=== PATIENT | female | born 1945 | race Caucasian/White ===

== ENCOUNTER 2020-03-29 14:13 | Outpatient (CLI) | payer MEDICARE, OTHER, SELFPAY ==
--- NOTE | 2020-03-29 14:26 | MR_ITS ---
WS: [id number] MRI LUMBAR SPINE NONCONTRAST TECHNIQUE: Sagittal T1, T2 and STIR imaging. Axial T1 and T2 imaging. CLINICAL INFORMATION: DEGENERATIVE DISC DISEASE LUMBOSACRAL SPINE W/RADICULOPATHY COMPARISON: MRI FINDINGS: Mild lumbar curve. No acute compression. Mild disc bulging throughout the lumbar spine. Degenerative disc disease has slightly progressed compared to 2012 worse at L4-5 L1-L2: Mild disc bulging. Mild facet arthropathy. Spinal canal and foramen are patent. L2-L3: Mild disc bulging with mild central canal stenosis. Impingement on the left subarticular reces s. Mild to moderate facet arthropathy. Mild right and no significant left foraminal narrowing. L3-L4: Mild disc bulging with mild central canal stenosis. Impingement on the left subarticular reces s and traversing left L4 nerve root. Mild right and no significant left foraminal narrowing. Mild to moderate facet arthropathy. L4-L5: Mild disc bulging with osteophytic ridging. Moderate facet arthropathy with ligamentum flavum hypertrophy. Moderate central canal stenosis. Impingement subarticular recess bilaterally. Mild right and no significant left foraminal narrowing. Central canal stenosis is unchanged at this level. L5-S1: Disc osteophyte complex with endplate ridging. Slight effacement of ventral thecal sac. Slight contact of the left S1 nerve root. Left eccentric disc osteophytic ridging slightly encroaches on th e far exiting left L5 nerve root. Right foramen is patent. Mild facet arthropathy. Visualized pelvic bony structures: Normal. Paravertebral soft tissues: Normal. MR/MR lumbar spine wo con* [id number] IMPRESSION: 1. Mild lumbar curve. No acute compression. 2. Moderate central canal stenosis L4-5 with impingement on the traversing L5 nerve roots bilaterally. This appears stable since 2012. 3. Mild central canal stenosis L2-L3 and L3-4 slightly progressed at L3-4 comp ared to previous. Impingement traversing left L4 nerve root. 4. Mild right L2-3 and right L3-4 foraminal narrowing appears unchanged. 5. Moderate right L4-5 foraminal narrowing with impingement on the exiting rig ht L4 nerve root appears progressed. Recommend correlation for right L4 nerve r oot symptoms. 6. Moderate facet arthropathy L2-L3 and L3-L4.
== END 2020-03-29 14:14 | disposition home or self-care (01) ==
LOC: RADSHAW 14:22
PROVIDERS: PCP Internal Medicine; Visit Provider Internal Medicine
DX: M51.17 Intervertebral disc disorders with radiculopathy, lumbosacral region (principal); M48.061 Spinal stenosis, lumbar region without neurogenic claudication
CPT/HCPCS: 72148

== ENCOUNTER 2020-03-30 06:00 | Outpatient (RCR) | payer MEDICARE, OTHER, SELFPAY | END 2020-04-12 23:00 | disposition home or self-care (01) | LOC: SPT 06:00 | PROVIDERS: PCP Internal Medicine; Referring Provider Internal Medicine; Visit Provider Internal Medicine | DX: M51.17 Intervertebral disc disorders with radiculopathy, lumbosacral region (principal) | CPT/HCPCS: 97161 ==

== ENCOUNTER 2020-06-22 14:29 | Outpatient (CLI) | payer MEDICARE, OTHER, SELFPAY ==
--- NOTE | 2020-06-22 14:38 | MM_ITS ---
WS: [id number] BILATERAL DIGITAL SCREENING MAMMOGRAPHY WITH CAD CLINICAL INFORMATION: SCREENING HISTORY: Screening mammogram. No current complaints. COMPARISON: [id number] TECHNIQUE: Bilateral CC and MLO views. FINDINGS: Scattered fibroglandular densities bilaterally. Stable circumscribed nodules right breast are unchang ed with adjacent biopsy markers. Lucent center and punctate calcifications. No suspicious focal mass, asymmetry, calcifications, or architectural distortion. No evidence of malignancy. MM/[place] [id number] IMPRESSION: BI-RADS: 2-Benign FOLLOW UP: 1 Year Follow-up Recommend return to annual screening mammography.
== END 2020-06-22 14:30 | disposition home or self-care (01) ==
LOC: RADSHAW 14:36
PROVIDERS: PCP Internal Medicine; Visit Provider Internal Medicine
DX: Z12.31 Encounter for screening mammogram for malignant neoplasm of breast (principal)
CPT/HCPCS: 77067

== ENCOUNTER → 2021-01-10 11:28 | Outpatient (BNVA) | payer MEDICARE, OTHER, SELFPAY | PROVIDERS: PCP Internal Medicine; Visit Provider Nurse Practitioner Family | DX: M25.562 Pain in left knee (principal) | CPT/HCPCS: 73562 ==

== ENCOUNTER 2021-08-25 11:50 | Outpatient (CLI) | payer MEDICARE, OTHER, SELFPAY ==
--- NOTE | 2021-08-25 11:57 | MM_ITS ---
WS: [id number] BILATERAL 3D TOMOSYNTHESIS DIGITAL SCREENING MAMMOGRAPHY WITH CAD CLINICAL INFORMATION: SCREENING HISTORY: Screening mammogram. No current complaints. COMPARISON: June 22, 2020 TECHNIQUE: Bilateral CC and MLO views. FINDINGS: Scattered fibroglandular densities bilaterally. Stable circumscribed nodules RIGHT breast are unchang ed adjacent biopsy markers. Punctate and lucent centered calcifications. Progressed 2.3 cm asymmetric density mid depth RIGHT breast best seen on the MLO view. Recommend RIGHT diagnostic mammography wit h spot compression views and ultrasound if persistent for further evaluation. LEFT breast is unremarkable and unchanged. MM/[place] [id number] IMPRESSION: BI-RADS: 0-Incomplete: Need additional imaging evaluation FOLLOW UP: Need Additional Imaging Recommend RIGHT diagnostic mammography with spot compression views and ultrasou nd if persistent for further evaluation
== END 2021-08-25 11:51 | disposition home or self-care (01) ==
LOC: RAD 11:52
PROVIDERS: PCP Internal Medicine; Visit Provider Internal Medicine
DX: Z12.31 Encounter for screening mammogram for malignant neoplasm of breast (principal)
CPT/HCPCS: 77063; 77067

== ENCOUNTER 2021-09-20 09:04 | Outpatient (CLI) | payer MEDICARE, OTHER, SELFPAY ==
--- NOTE | 2021-09-20 09:15 | MM_ITS ---
WS: [id number] RIGHT 3D TOMOSYNTHESIS DIGITAL MAMMOGRAPHY WITH CAD CLINICAL INFORMATION: ABNORMAL MAMMOGRAM COMPARISON: August 25, 2021 TECHNIQUE: 3 views of the right breast were obtained. FINDINGS: Scattered fibroglandular densities of the right breast. Previously described 2.3 cm asymmetric densit y RIGHT breast compresses out today on the spot compression views. No other suspicious findings. No o ther significant interval changes. Previously described ovoid nodules with adjacent biopsy markers. R ecommend return to annual screening mammography. MM/[place] [id number] IMPRESSION: BI-RADS: 2-Benign FOLLOW UP: 1 Year Follow-up Recommend return to annual screening mammography.
== END 2021-09-20 09:05 | disposition home or self-care (01) ==
PROVIDERS: PCP Internal Medicine; Visit Provider Internal Medicine
DX: R92.8 Other abnormal and inconclusive findings on diagnostic imaging of breast (principal)
CPT/HCPCS: 77061

== ENCOUNTER 2022-08-22 09:54 | Outpatient (CLI) | payer MEDICARE, OTHER, SELFPAY ==
--- NOTE | 2022-08-22 10:30 | USCV_ITS ---
Colton Wilma Age: 76 Gender: F : 1945 Exam Date: 08/22/2022 10:50 Ordering Phys: Anne Nicole MD Technologist: CT Exam Location: [facility] – [place] Indication: blurry vision Risk Factors: Previous Vascular Surgery: Right Brachial BP: / Left Brachial BP: / Right Left Velocity (cm/s) Spectral Plaque Velocity (cm/s) Spectral Plaque Syst/Diast Broadening Syst/Diast Broadening 67.00/ 15.60 Prox CCA 89.70 / 21.40 102.80/22.10 Mid CCA 112.20/ 27.80 101.20/24.00 Distal CCA 116.40/ 25.60 134.40/36.50 Prox ICA 174.50/ 57.60 146.10/33.60 Mid ICA 152.80/ 34.70 102.20/30.80 Distal ICA 104.30/ 27.65 177.70 ECA 420.40 1.42 ICA/CCA 1.50 Antegrade Vertebral Antegrade 93.30/ 25.00 cm/s 55.90/ 13.20 cm/s Tri Subclavian Tri 3.90 167.8 0 CONCLUSIONS Right ICA stenosis 50-69%. Moderate atheromatous plaque right carotid bulb/ICA. Left ICA stenosis 50-69%. Moderate atheromatous plaque left carotid bulb/ICA. Normal antegrade Doppler flow noted in the right vertebral artery. Normal antegrade Doppler flow noted in the left vertebral artery. Mathew Huynh MD (Electronically Signed) Final Date: 22 Aug 2022 15:49 S
--- NOTE | 2022-08-22 10:31 | MR_ITS ---
WS: [id number] MRI BRAIN WITHOUT CONTRAST HISTORY: BLURRING OF VISUAL IMAGE, left eye blurry. COMPARISON: 05/04/2010 TECHNIQUE: Diffusion imaging, multiplanar T1, T2 and FLAIR imaging obtained. No acute diffusion abnormality. There are several small scattered T2 and FLAIR signal hyperintensitie s in the subcortical, supratentorial white matter. Slightly greater white matter disease on the RIGHT . There are several small areas of increased signal in the RIGHT cerebellum which were not present on the prior study. These are very slightly hyperintense on the T1 sequence. No hemosiderin. No prior i nfarcts. Mild atrophy. Ventricles and extra-axial spaces are normal. No inferior displacement of cerebellar tonsils. Pituitary gland is negative. Dural venous sinuses and [place] demonstrate no abnormality on this unenhanced studies. Paranasal sinuses: Clear. Mastoid air cells: RIGHT mastoid air cell effusion. Calvarium and scalp: Intact. MR/MR head wo con* [id number] IMPRESSION: 1. No acute diffusion-weighted abnormality or infarct. 2. Mild small vessel ischemic disease in the supratentorial white matter. 3. Focal areas of increased T2 signal in the RIGHT cerebellum. These may be pr ior infarcts but there is increased signal on the T1 sequence. Recommend follow -up MRI brain with contrast. Recommend additional IV contrast study to exclude enhancing lesions within the brain. 4. Mild atrophy. 5. Small RIGHT mastoid air cell effusion.
== END 2022-08-22 09:55 | disposition home or self-care (01) ==
PROVIDERS: PCP Internal Medicine; Visit Provider Internal Medicine
DX: I65.23 Occlusion and stenosis of bilateral carotid arteries (principal); G31.9 Degenerative disease of nervous system, unspecified
CPT/HCPCS: 70551; 93880

== ENCOUNTER 2022-09-08 13:31 | Outpatient (CLI) | payer MEDICARE, OTHER, SELFPAY ==
--- NOTE | 2022-09-08 13:39 | MR_ITS ---
WS: [id number] MRI BRAIN WITH AND WITHOUT CONTRAST, limited HISTORY: VISUAL DISTURBANCE, follow-up abnormality seen in the cerebellum on a noncontrast study. COMPARISON: 08/22/2022 and 05/04/2010 TECHNIQUE: Precontrast T1 sequences performed. Multiplanar imaging performed through the brain with M ultiHance 19 ml's IV. Signal abnormality in the RIGHT posterior fossa as described on the prior MRI does slightly enhance. There is only one area of enhancement measuring 8 mm. I suspect this may be of venous angioma due to its appearance on the coronal imaging. There is no associated hemorrhage. No significant edema or mas s effect. No additional areas of abnormal enhancement within the brain. Additional area of very vague increased T1 signal in the cerebellum appears to be a small venous angioma. No additional suspicious findings. MR/MR head w con [id number] IMPRESSION: 1. RIGHT cerebellar abnormalities described on 08/22/2022 do enhance. By their i maging characteristics I suspect these are small venous angiomas. As one of the lesions measures 8 mm and is slightly more nodular recommend follow-up MRI bra in with contrast in 3 months. 2. No additional areas of abnormal enhancement.
[2022-09-08] MEDS: gadobenate dimeglumine 20 mL vial IV (14:28)
== END 2022-09-08 13:32 | disposition home or self-care (01) ==
LOC: RAD 13:34
PROVIDERS: PCP Internal Medicine; Visit Provider Internal Medicine
DX: H53.8 Other visual disturbances (principal); R93.0 Abnormal findings on diagnostic imaging of skull and head, not elsewhere classified
CPT/HCPCS: 70552; A9577

== ENCOUNTER 2022-10-02 09:37 | Outpatient (CLI) | payer MEDICARE, OTHER, SELFPAY ==
--- NOTE | 2022-10-02 09:46 | MM_ITS ---
WS: [id number] BILATERAL SCREENING DIGITAL TOMOSYNTHESIS MAMMOGRAM WITH CAD HISTORY: SCREENING COMPARISON: 09/20/2021, 08/25/2021, 06/22/2020 Bilateral CC and MLO views with tomosynthesis and synthetic mammography submitted. Computer aided det ection analyzed. Breast composition: There are scattered areas of fibroglandular density. No suspicious masses, microc alcifications or architectural distortion. Bilateral benign calcifications. Stable asymmetries and ma sses within the RIGHT breast over multiple prior years. MM/[place] [id number] IMPRESSION: BI-RADS: 2-Benign FOLLOW UP: 1 Year Follow-up
== END 2022-10-02 09:38 | disposition home or self-care (01) ==
PROVIDERS: PCP Internal Medicine; Visit Provider Internal Medicine
DX: Z12.31 Encounter for screening mammogram for malignant neoplasm of breast (principal)
CPT/HCPCS: 77063; 77067

== ENCOUNTER 2023-01-02 11:10 | Outpatient (CLI) | payer MEDICARE, OTHER, SELFPAY ==
--- NOTE | 2023-01-02 11:18 | MR_ITS ---
WS: [id number] MRI BRAIN WITH AND WITHOUT CONTRAST HISTORY: ABNORMAL BRAIN MRI COMPARISON: MRI 09/08/2022 and 08/22/2022 TECHNIQUE: Multiplanar imaging performed through the brain with MultiHance 20 ml's IV. No acute infarcts are seen. Tam-white matter differentiation is well preserved. Mild scattered T2 an d FLAIR signal hyperintensities in the supratentorial white matter have not progressed. Reidentified is a very subtle areas of increased T2 signal and FLAIR signal in the RIGHT cerebellum. These appear less obvious today. No associated hemorrhage or mass effect. There is very slight contrast enhancemen t within the more medial signal abnormality suggest this may be a small venous angioma. Ventricles and extra-axial spaces are normal. Clivus and pituitary gland are normal. Normal appearance of the visualized brainstem. Very subtle blush like area of enhancement in the RIGHT cerebellum. Suspect this is probably a small venous angioma. The more lateral previously described abnormality in the RIGHT cerebellum does not en anibal. No masses. No mass effect. Dural venous sinuses are normal. Paranasal sinuses: Well aerated with no significant disease. Mastoid air cells: Mild fluid RIGHT mastoid air cells. Calvarium and scalp: Normal. IMPRESSION: 1. Slight decrease in size of the blush like area of enhancement in the RIGHT cerebellum since 2022. Favor this is probably a small venous angioma. No additional areas of abnormal enhancement with in the brain. No masses. 2. Normal diffusion sequences. 3. Mild small vessel ischemic disease in the supratentorial white matter is stable.
[2023-01-02] MEDS: gadobenate dimeglumine 20 mL vial IV (13:59)
== END 2023-01-02 11:11 | disposition home or self-care (01) ==
PROVIDERS: PCP Internal Medicine; Visit Provider Internal Medicine
DX: R90.89 Other abnormal findings on diagnostic imaging of central nervous system (principal)
CPT/HCPCS: 70553; A9577